=== PATIENT | female | born 1990 | race Two or more races ===

== ENCOUNTER 2018-11-03 16:10 | Emergency (ER) | payer OTHER ==
[~2018-11-03] VITALS: Ht 149.9 cm; Wt 40.8 kg
[2018-11-03] MEDS ORDERED: OBSTETRIX DHA1 EACH (16:45)
== END 2018-11-03 21:25 | disposition home or self-care (01) ==
LOC: ER 16:10
DX: O20.0 Threatened abortion (principal)

== ENCOUNTER 2019-05-07 14:21 | Inpatient (IN) | payer OTHER ==
[~2019-05-07] VITALS: Ht 147.3 cm; Wt 2.7 kg
[~2019-05-07 14:21] MED LIST: OBSTETRIX DHA1 EACH
== END 2019-06-02 15:04 | disposition home or self-care (01) | DRG 788 ==
LOC: OB/GYN 05-28 13:00 → LDR 05-30 06:12 → OB/GYN 05-30 06:12
PROVIDERS: ADMIT Obstetrics & Gynecology
PROC: 3E033VJ Introduction of Other Hormone into Peripheral Vein, Percutaneous Approach (ICD-10-PCS; 2019-05-30)
PROC: 4A1HXCZ Monitoring of Products of Conception, Cardiac Rate, External Approach (ICD-10-PCS; 2019-05-30)
PROC: 10D00Z1 Extraction of Products of Conception, Low, Open Approach (ICD-10-PCS; principal; 2019-05-30 13:00)
DX: O82 Encounter for cesarean delivery without indication (principal); O61.0 Failed medical induction of labor; Z3A.38 38 weeks gestation of pregnancy; Z37.0 Single live birth